=== PATIENT | female | born 1970 | race African-American/Black ===

== ENCOUNTER 2020-10-19 12:36 | Emergency (ER) | payer OTHER ==
[~2020-10-19] VITALS: Ht 154.9 cm; Wt 47.6 kg
[2020-10-19 13:19] VITALS: BP 145/85
[2020-10-19 14:14] LABS: URINE BILIRUBIN NEGATIVE (Negative); URINE BLOOD TRACE (Negative); URINE CLARITY CLEAR; URINE COLOR YELLOW; URINE GLUCOSE-RANDOM* NEGATIVE (Negative); URINE KETONES TRACE (Negative); URINE LEUKOCYTES-REFLEX NEGATIVE (Negative); URINE NITRITE-REFLEX NEGATIVE (Negative); URINE PROTEIN (DIPSTICK) NEGATIVE (Negative); URINE UROBILINOGEN 0.2 E.U./dl (0.2-1.0)
[2020-10-19] MEDS ORDERED: AMOXICILLIN500 M1 PO (14:39)
== END 2020-10-19 15:13 | disposition home or self-care (01) ==
LOC: ER 12:36
PROVIDERS: Nurse Practitioner
DX: J02.9 Acute pharyngitis, unspecified (principal)